=== PATIENT | female | born 1975 | race African-American/Black ===

== ENCOUNTER 2016-10-16 13:38 | Emergency (ER) | payer BC ==
[~2016-10-16 13:38] MED LIST: METR250T PO; ONDA4TAB10 SL
[2016-10-16] MEDS ORDERED: IV NORMAL SALINE 1000ML BAG 1,000 ML IV SCH (15:15)
[2016-10-16] MEDS ORDERED: PROCHLORPERAZINE 10 MG/2 ML VIAL. IV ONE (15:15)
[2016-10-16] MEDS ORDERED: DIPHENHYDRAMINE 50 MG/ML VIAL. IVP ONE (15:15)
[2016-10-16 15:51] LABS: BASO # 0.1 x10^3/uL (0.0-0.2); BASO % 1 % (0-3); EOS % 0 % (0-3); HEMOGLOBIN 14.3 g/dL (12.0-15.5); LYMPH # 1.2 x10^3/uL (1.0-4.8); LYMPH % 12 % (24-48); MEAN CORPUSCULAR HEMOGLOBIN 30 pg (25-35); MEAN CORPUSCULAR HGB CONC 33 g/dL (31-37); MEAN CORPUSCULAR VOLUME 90 fL (79-100); MONO % 4 % (0-9); NEUT % 83 % (31-73); PLATELET COUNT 101 x10^3/uL (140-400); RED BLOOD COUNT 4.79 x10^6/uL (3.50-5.40); RED CELL DISTRIBUTION WIDTH 14.2 % (11.5-14.5)
[2016-10-16 16:09] LABS: CALCIUM 8.9 mg/dL (8.5-10.1); CREATININE 0.8 mg/dL (0.6-1.0); GFR 96.1; PLT ESTIMATE DECREASED (ADEQUATE); POTASSIUM 3.8 mmol/L (3.5-5.1)
[2016-10-16 16:15] LABS: ALBUMIN 3.7 g/dL (3.4-5.0); TOTAL BILIRUBIN 0.4 mg/dL (0.2-1.0); TOTAL PROTEIN 7.3 g/dL (6.4-8.2)
[2016-10-16 16:24] VITALS: BP 152/97
[2016-10-16 16:29] LABS: BILIRUBIN,URINE NEGATIVE (NEG); GLUCOSE,URINE NEGATIVE (NEG); NITRITE,URINE NEGATIVE (NEG); PH,URINE 8.5; PROTEIN,URINE 30 mg/dL (NEG-TRACE)
--- NOTE | 2016-10-16 16:31 | PHYS DOC ---
Past Medical History Past Medical History: Hypertension, Migraines Past Surgical History: Tubal ligation Alcohol Use: Occasionally Drug Use: None Adult General Chief Complaint Chief Complaint: HEADACHE HPI HPI Patient is a 41 year old female who presents with headache. She reports a L side throbbing NEAL that started without provocation this morning ~0500. NEAL same as prior migraines. She has felt nauseous and vomited a few times today. Patient does report some mild epigastric discomfort due to the emesis. She has taken some ibuprofen today with insufficient relief. No numbness or weakness, no change in vision. No other acute complaints. Review of Systems Review of Systems Constitutional: Denies fever or chills Eyes: Denies change in visual acuity or eye pain HENT: Denies nasal congestion or sore throat Respiratory: Denies cough or shortness of breath Cardiovascular: Denies chest pain GI: Mild epigastric pain, nausea, vomiting. Denies bloody stools or diarrhea : Denies dysuria or hematuria Musculoskeletal: Denies back pain or joint pain Integument: Denies rash or skin lesions Neurologic: L side headache. Denies focal weakness or sensory changes Current Medications Current Medications Current Medications Medications (Trade) Dose Ordered Sig/Vignesh Start Time Stop Time Status Last Admin Dose Admin Diphenhydramine HCl (Benadryl) 25 mg 1X ONCE 10/16/16 15:15 10/16/16 15:16 DC 10/16/16 15:34 25 MG Prochlorperazine Edisylate (Compazine) 10 mg 1X ONCE 10/16/16 15:15 10/16/16 15:16 DC 10/16/16 15:36 10 MG Sodium Chloride (Iv Sodium Chloride 0.9% 1000ml Bag) 1,000 ml @ 1,000 mls/hr Q1H 10/16/16 15:15 10/16/16 16:14 DC 10/16/16 15:33 1,000 MLS/HR Allergies Allergies Allergies Coded Allergies Type Severity Reaction Last Updated Verified No Known Drug Allergies 01/22/15 No Physical Exam Physical Exam Constitutional: Well developed, well nourished, no acute distress, non-toxic appearance HENT: Normocephalic, atraumatic, bilateral external ears normal Eyes: PERRL, EOMI, conjunctiva normal, no discharge Neck: Normal range of motion, no stridor Cardiovascular: Heart rate normal, regular rhythm, no murmur Lungs & Thorax: Bilateral breath sounds clear to auscultation Abdomen: Bowel sounds normal, soft, non-distended, minimal epigastric TTP without guarding or rebound Skin: Warm, dry, no erythema, no rash Extremities: No obvious deformity, no edema Neurologic: Alert and oriented X 3, GCS 15, CN II-XII grossly intact, strength intact and symmetrical throughout, sensation to light touch intact throughout, no dystaxia noted Current Patient Data Vital Signs Vital Signs Date Time Temp Pulse Resp B/P Pulse Ox O2 Delivery O2 Flow Rate FiO2 10/16/16 14:24 97.7 74 20 172/109 98 Room Air 97.7 Lab Values Laboratory Tests Test 10/16/16 15:25 10/16/16 15:26 10/16/16 16:25 White Blood Count 10.0x10^3/uL (4.0-11.0) Red Blood Count 4.79x10^6/uL (3.50-5.40) Hemoglobin 14.3g/dL (12.0-15.5) Hematocrit 43.0% (36.0-47.0) Mean Corpuscular Volume 90fL (79-100) Mean Corpuscular Hemoglobin 30pg (25-35) Mean Corpuscular Hemoglobin Concent 33g/dL (31-37) Red Cell Distribution Width 14.2% (11.5-14.5) Platelet Count 101x10^3/uL (140-400) L Neutrophils (%) (Auto) 83% (31-73) H Lymphocytes (%) (Auto) 12% (24-48) L Monocytes (%) (Auto) 4% (0-9) Eosinophils (%) (Auto) 0% (0-3) Basophils (%) (Auto) 1% (0-3) Neutrophils # (Auto) 8.3x10^3uL (1.8-7.7) H Lymphocytes # (Auto) 1.2x10^3/uL (1.0-4.8) Monocytes # (Auto) 0.4x10^3/uL (0.0-1.1) Eosinophils # (Auto) 0.0x10^3/uL (0.0-0.7) Basophils # (Auto) 0.1x10^3/uL (0.0-0.2) Platelet Estimate Decreased (ADEQUATE) Large Platelets Few Giant Platelets Occ Sodium Level 144mmol/L (136-145) Potassium Level 3.8mmol/L (3.5-5.1) Chloride Level 106mmol/L (98-107) Carbon Dioxide Level 26mmol/L (21-32) Anion Gap 12 (6-14) Blood Urea Nitrogen 10mg/dL (7-20) Creatinine 0.8mg/dL (0.6-1.0) Estimated GFR (Cockcroft-Gault) 96.1 BUN/Creatinine Ratio 13 (6-20) Glucose Level 111mg/dL (70-99) H Calcium Level 8.9mg/dL (8.5-10.1) Total Bilirubin 0.4mg/dL (0.2-1.0) Aspartate Amino Transferase (AST) 12U/L (15-37) L Alanine Aminotransferase (ALT) 19U/L (14-59) Alkaline Phosphatase 58U/L (46-116) Total Protein 7.3g/dL (6.4-8.2) Albumin 3.7g/dL (3.4-5.0) Albumin/Globulin Ratio 1.0 (1.0-1.7) Lipase 70U/L (73-393) L POC Urine HCG, Qualitative Hcg negative (Negative) Urine Collection Type Unknown Urine Color Yellow Urine Clarity Cloudy Urine pH 8.5 Urine Specific [place] 1.025 Urine Protein 30mg/dL (NEG-TRACE) Urine Glucose (UA) Negativemg/dL (NEG) Urine Ketones (Stick) Negativemg/dL (NEG) Urine Blood Negative (NEG) Urine Nitrite Negative (NEG) Urine Bilirubin Negative (NEG) Urine Urobilinogen Dipstick 1.0mg/dL (0.2 mg/dL) Urine Leukocyte Esterase Small (NEG) Urine RBC 0/HPF (0-2) Urine WBC 5-10/HPF (0-4) Urine Squamous Epithelial Cells Mod/LPF Urine Bacteria Few/HPF (0-FEW) Urine Mucus Marked/LPF Laboratory Tests 10/16/16 15:25 Laboratory Tests 10/16/16 15:25 EKG EKG [] Radiology/Procedures Radiology/Procedures [] Course & Med Decision Making Course & Med Decision Making Pertinent Labs and Imaging studies reviewed. (See chart for details) Patient is 41 year old female who presents with NEAL. NEAL same as prior migraines, no concerning findings on physical exam. Will check basic labs given epigastric discomfort, although presumably this is due to vomiting. IV fluids, compazine, benadryl ordered for NEAL relief. Labs unremarkable. Discussed results with patient, whose NEAL has resolved at this time and is feeling much better. Will plan discharge home with rx for fioricet and phenergan, instructions for follow up with PCP and neurology, and strict return precautions. Dragon Disclaimer Dragon Disclaimer This electronic medical record was generated, in whole or in part, using a voice recognition dictation system. Departure Departure Impression: Primary Impression: Migraine Disposition: HOME, SELF-CARE Condition: IMPROVED Referrals: CHARLES CRUZ MD (PCP) ALANNA FARRIS MD Patient Instructions: Migraine Headache Additional Instructions: Thank you for allowing us to provide care today in the Emergency Department. Take the provided medication as directed. Use caution when taking this medication as it can make you drowsy. Schedule a follow up appointment with your primary care doctor and with a neurologist using the provided contact information. Return promptly to the Emergency Department if you develop any new or concerning symptoms. Scripts Promethazine Hcl 25 Mg [id number] Mg PO Q6H PRN NAUSEA/VOMITING #10 TAB Prov:SOPHIA PEREZ MD 10/16/16 Butalb/Acetaminophen/Caffeine (Fioricet 50-300-40 Mg Capsule)1 Each Capsule1 Each PO PRN Q4HRS PRN HEADACHE #15 CAP Prov:SOPHIA PEREZ MD 10/16/16 SOPHIA PEREZ MD Oct 16, 2016 16:31
[2016-10-16 16:35] LABS: BACTERIA,URINE FEW /HPF (0-FEW); RBC,URINE 0 /HPF (0-2); SQUAMOUS EPITHELIAL CELL,UR MOD /LPF
[2016-10-16] MEDS ORDERED: BUTA1CAP29 PO (16:46)
[2016-10-16] MEDS ORDERED: PROM25TA10 PO (16:46)
== END 2016-10-16 17:00 | disposition home or self-care (01) ==
LOC: ER 13:38
DX: G43.909 Migraine, unspecified, not intractable, without status migrainosus (principal); R10.13 Epigastric pain; I10 Essential (primary) hypertension; Z98.51 Tubal ligation status
CPT/HCPCS: 36415; 80053; 81001; 81025; 83690; 85007; 85027; 87086; 96361; 96374; 96375; 99284; J0780; J1200; J7030

== ENCOUNTER 2017-04-20 16:26 | Emergency (ER) | payer SELFPAY ==
[~2017-04-20 16:26] MED LIST changes: +BUTA1CAP29 PO; +PROM25TA10 PO
[2017-04-20] MEDS ORDERED: IV NORMAL SALINE 1000ML BAG 1,000 ML IV SCH (17:17)
[2017-04-20 17:27] LABS: BASO % 1 % (0-3); BILIRUBIN,URINE NEGATIVE (NEG); EOS % 1 % (0-3); GLUCOSE,URINE NEGATIVE (NEG); HEMATOCRIT 41.4 % (36.0-47.0); HEMOGLOBIN 13.9 g/dL (12.0-15.5); LYMPH # 1.4 x10^3/uL (1.0-4.8); LYMPH % 22 % (24-48); MEAN CORPUSCULAR HEMOGLOBIN 30 pg (25-35); MEAN CORPUSCULAR HGB CONC 34 g/dL (31-37); MEAN CORPUSCULAR VOLUME 89 fL (79-100); MONO % 7 % (0-9); NEUT % 70 % (31-73); NITRITE,URINE NEGATIVE (NEG); PH,URINE 7.5; PLATELET COUNT 110 x10^3/uL (140-400); PROTEIN,URINE NEGATIVE (NEG-TRACE); RED BLOOD COUNT 4.66 x10^6/uL (3.50-5.40); RED CELL DISTRIBUTION WIDTH 14.1 % (11.5-14.5); WHITE BLOOD COUNT 6.5 x10^3/uL (4.0-11.0)
[2017-04-20] MEDS ORDERED: ONDANSETRON PF 4 MG/2 ML VIAL. IV ONE (17:30)
[2017-04-20 17:32] LABS: BARBITURATES NEG (NEG); BENZODIAZEPINES NEG (NEG); CANNABINOIDS POS (NEG); COCAINE NEG (NEG); METHADONE NEG (NEG); OPIATES NEG (NEG); PHENCYCLIDINE NEG (NEG)
[2017-04-20 17:37] LABS: BACTERIA,URINE MOD /HPF (0-FEW); RBC,URINE 0 /HPF (0-2); SQUAMOUS EPITHELIAL CELL,UR MOD /LPF; TRICHOMONAS,URINE PRESENT
--- NOTE | 2017-04-20 17:42 | PHYS DOC ---
Past Medical History Past Medical History: Hypertension, Migraines Past Surgical History: Tubal ligation Alcohol Use: Occasionally Drug Use: None Adult General Chief Complaint Chief Complaint: NAUSEA/VOMITING/DIARRHA HPI HPI Patient is a 42 year old -French female who presents with vomiting and diarrhea. She states she's had 4 episodes of nonbloody vomiting today in 5- 6 episodes of nonbloody diarrhea. She states she has some crampy abdominal pain resolves between these episodes. She states she's been around her grands kids that have been sick with the same thing. Review of Systems Review of Systems Constitutional: Denies fever or chills Eyes: Denies change in visual acuity, redness, or eye pain HENT: Denies nasal congestion or sore throat Respiratory: Denies cough or shortness of breath Cardiovascular: No additional information not addressed in HPI GI: Denies abdominal pain, bloody stools, Positive for nausea, vomiting, and diarrhea : Denies dysuria or hematuria Musculoskeletal: Denies back pain or joint pain Integument: Denies rash or skin lesions Neurologic: Denies headache, focal weakness or sensory changes Endocrine: Denies polyuria or polydipsia Current Medications Current Medications Current Medications Medications (Trade) Dose Ordered Sig/Vigensh Start Time Stop Time Status Last Admin Dose Admin Ondansetron HCl (Zofran) 4 mg 1X ONCE 04/20/17 17:30 04/20/17 17:31 DC 04/20/17 18:05 4 MG Potassium Chloride (Klor-Con) 40 meq 1X ONCE 04/20/17 19:30 04/20/17 19:30 DC 04/20/17 19:08 40 MEQ Sodium Chloride 1,000 ml @ 1,000 mls/hr Q1H 04/20/17 17:17 04/20/17 18:16 DC 04/20/17 18:06 1,000 MLS/HR Allergies Allergies Allergies Coded Allergies Type Severity Reaction Last Updated Verified No Known Drug Allergies 01/22/15 No Physical Exam Physical Exam Constitutional: Well developed, well nourished, no acute distress, non-toxic appearance. HENT: Normocephalic, atraumatic, bilateral external ears normal, oropharynx moist, no oral exudates, nose normal. Eyes: PERRLA, EOMI, conjunctiva normal, no discharge. Neck: Normal range of motion, no tenderness, supple, no stridor. Cardiovascular:Heart rate regular rhythm, no murmur Lungs & Thorax: Bilateral breath sounds clear to auscultation Abdomen: Bowel sounds normal, soft, no tenderness, no masses, no pulsatile masses. Skin: Warm, dry, no erythema, no rash. Back: No tenderness, no CVA tenderness. Extremities: No tenderness, no cyanosis, no clubbing, ROM intact, no edema. Neurologic: Alert and oriented X 3, normal motor function, normal sensory function, no focal deficits noted. Psychologic: Affect normal, judgement normal, mood normal. Current Patient Data Vital Signs Vital Signs Date Time Temp Pulse Resp B/P (MAP) Pulse Ox O2 Delivery O2 Flow Rate FiO2 04/20/17 18:42 60 193/101 (131) 98 Room Air 04/20/17 16:49 98.2 16 98.2 Lab Values Laboratory Tests Test 04/20/17 16:50 04/20/17 17:52 White Blood Count 6.5 x10^3/uL (4.0-11.0) Red Blood Count 4.66 x10^6/uL (3.50-5.40) Hemoglobin 13.9 g/dL (12.0-15.5) Hematocrit 41.4 % (36.0-47.0) Mean Corpuscular Volume 89 fL (79-100) Mean Corpuscular Hemoglobin 30 pg (25-35) Mean Corpuscular Hemoglobin Concent 34 g/dL (31-37) Red Cell Distribution Width 14.1 % (11.5-14.5) Platelet Count 110 x10^3/uL (140-400) L Neutrophils (%) (Auto) 70 % (31-73) Lymphocytes (%) (Auto) 22 % (24-48) L Monocytes (%) (Auto) 7 % (0-9) Eosinophils (%) (Auto) 1 % (0-3) Basophils (%) (Auto) 1 % (0-3) Neutrophils # (Auto) 4.5 x10^3uL (1.8-7.7) Lymphocytes # (Auto) 1.4 x10^3/uL (1.0-4.8) Monocytes # (Auto) 0.4 x10^3/uL (0.0-1.1) Eosinophils # (Auto) 0.0 x10^3/uL (0.0-0.7) Basophils # (Auto) 0.0 x10^3/uL (0.0-0.2) Platelet Estimate Decreased (ADEQUATE) Prothrombin Time 13.0 SEC (11.7-14.0) Prothrombin Time INR 1.0 (0.8-1.1) PTT 28 SEC (24-38) Urine Collection Type Unknown Urine Color Yellow Urine Clarity Cloudy Urine pH 7.5 Urine Specific [place] 1.020 Urine Protein Negative mg/dL (NEG-TRACE) Urine Glucose (UA) Negative mg/dL (NEG) Urine Ketones (Stick) 15 mg/dL (NEG) Urine Blood Negative (NEG) Urine Nitrite Negative (NEG) Urine Bilirubin Negative (NEG) Urine Urobilinogen Dipstick 1.0 mg/dL (0.2 mg/dL) Urine Leukocyte Esterase Moderate (NEG) Urine RBC 0 /HPF (0-2) Urine WBC 1-4 /HPF (0-4) Urine Squamous Epithelial Cells Mod /LPF Urine Bacteria Mod /HPF (0-FEW) Urine Mucus Slight /LPF Urine Trichomonas Present Urine Opiates Screen Neg (NEG) Urine Methadone Screen Neg (NEG) Urine Barbiturates Neg (NEG) Urine Phencyclidine Screen Neg (NEG) Urine Amphetamine/Methamphetamine Neg (NEG) Urine Benzodiazepines Screen Neg (NEG) Urine Cocaine Screen Neg (NEG) Urine Cannabinoids Screen Pos (NEG) Urine Ethyl Alcohol Neg (NEG) Sodium Level 140 mmol/L (136-145) Potassium Level 3.4 mmol/L (3.5-5.1) L Chloride Level 104 mmol/L (98-107) Carbon Dioxide Level 27 mmol/L (21-32) Anion Gap 9 (6-14) Blood Urea Nitrogen 11 mg/dL (7-20) Creatinine 0.7 mg/dL (0.6-1.0) Estimated GFR (Cockcroft-Gault) 111.6 Glucose Level 103 mg/dL (70-99) H Calcium Level 8.8 mg/dL (8.5-10.1) Total Bilirubin 0.3 mg/dL (0.2-1.0) Direct Bilirubin 0.1 mg/dL (0.0-0.2) Aspartate Amino Transferase (AST) 14 U/L (15-37) L Alanine Aminotransferase (ALT) 19 U/L (14-59) Alkaline Phosphatase 58 U/L (46-116) Total Protein 7.3 g/dL (6.4-8.2) Albumin 3.6 g/dL (3.4-5.0) Lipase 87 U/L (73-393) Laboratory Tests 04/20/17 16:50 Laboratory Tests 04/20/17 17:52 EKG EKG [] Radiology/Procedures Radiology/Procedures [] Impressions: Nausea vomiting diarrhea Hypokalemia Course & Med Decision Making Course & Med Decision Making Pertinent Labs and Imaging studies reviewed. (See chart for details) Labs, do not show any acute abnormalities. Patient feels better after Zofran and IV hydration. Return precautions given. Patient's being discharged in stable condition this time. Dragon Disclaimer Dragon Disclaimer This electronic medical record was generated, in whole or in part, using a voice recognition dictation system. Departure Departure Impression: Primary Impression: Nausea and vomiting Disposition: HOME, SELF-CARE Condition: STABLE Referrals: CHARLES CRUZ MD (PCP) Patient Instructions: Nausea and Vomiting, [id number] Additional Instructions: You were seen for nausea and vomiting. You received IV fluids and your labs did not show any acute abnormalities. Your potassium level was slightly low and this was replaced with one pill. Your being discharged home. You can take Zofran which is an oral dissolvable tablet for nausea and vomiting. Please push fluids for the next 2-3 days. You should follow up with primary care physician within the next week. Return back to ER if you have uncontrolled nausea vomiting , abdominal pain or other concerns. Scripts Ondansetron (ZOFRAN ODT) 4 Mg Tab.rapdis 1 TAB SL Q8HRS, #10 TAB Prov: JOSE GREWAL MD 04/20/17 Problem Qualifiers Primary Impression: Nausea and vomiting Vomiting type: unspecified Vomiting Intractability: non-intractable Qualified Codes: R11.2 - Nausea with vomiting, unspecified JOSE GREWAL MD Apr 20, 2017 17:42
[2017-04-20 17:47] LABS: PLT ESTIMATE DECREASED (ADEQUATE)
[2017-04-20 18:12] LABS: CALCIUM 8.8 mg/dL (8.5-10.1); CREATININE 0.7 mg/dL (0.6-1.0); GFR 111.6; POTASSIUM 3.4 mmol/L (3.5-5.1)
[2017-04-20 18:18] LABS: ALBUMIN 3.6 g/dL (3.4-5.0); DIRECT BILIRUBIN 0.1 mg/dL (0.0-0.2); TOTAL BILIRUBIN 0.3 mg/dL (0.2-1.0); TOTAL PROTEIN 7.3 g/dL (6.4-8.2)
[2017-04-20 18:42] VITALS: BP 193/101
[2017-04-20] MEDS ORDERED: ONDA4TAB10 SL (19:06)
[2017-04-20] MEDS ORDERED: POTASSIUM CHLORIDE 20 MEQ TABLET.ER. PO ONE (19:30)
== END 2017-04-20 19:15 | disposition home or self-care (01) ==
LOC: ER 16:26
DX: R11.2 Nausea with vomiting, unspecified (principal); R19.7 Diarrhea, unspecified; R10.9 Unspecified abdominal pain; I10 Essential (primary) hypertension; G43.909 Migraine, unspecified, not intractable, without status migrainosus
CPT/HCPCS: 36415; 80048; 80076; 80307; 81001; 83690; 85025; 85610; 85730; 96361; 96374; 99284; J2405; J7030; G0479

== ENCOUNTER 2017-07-28 15:59 | Emergency (ER) | payer SELFPAY ==
[2017-07-28 19:20] LABS: URINE HCG POC HCG NEGATIVE (Negative)
[2017-07-28 19:25] LABS: ADD MAN DIFF? NO
[2017-07-28 19:31] LABS: BASO % 1 % (0-3); EOS % 0 % (0-3); HEMATOCRIT 43.6 % (36.0-47.0); HEMOGLOBIN 14.1 g/dL (12.0-15.5); LYMPH # 0.7 x10^3/uL (1.0-4.8); LYMPH % 14 % (24-48); MEAN CORPUSCULAR HEMOGLOBIN 29 pg (25-35); MEAN CORPUSCULAR HGB CONC 32 g/dL (31-37); MEAN CORPUSCULAR VOLUME 90 fL (79-100); MONO # 0.5 x10^3/uL (0.0-1.1); MONO % 10 % (0-9); NEUT # 3.7 x10^3uL (1.8-7.7); NEUT % 75 % (31-73); PLATELET COUNT 127 x10^3/uL (140-400); RED BLOOD COUNT 4.87 x10^6/uL (3.50-5.40); RED CELL DISTRIBUTION WIDTH 14.2 % (11.5-14.5); WHITE BLOOD COUNT 4.9 x10^3/uL (4.0-11.0)
[2017-07-28 19:32] LABS: BILIRUBIN,URINE NEGATIVE (NEG); CLARITY,URINE CLEAR; COLOR,URINE YELLOW; GLUCOSE,URINE NEGATIVE (NEG); NITRITE,URINE NEGATIVE (NEG); PH,URINE 7.5; PROTEIN,URINE 30 mg/dL (NEG-TRACE)
[2017-07-28 19:41] LABS: BACTERIA,URINE 0 /HPF (0-FEW); SQUAMOUS EPITHELIAL CELL,UR MOD /LPF
[2017-07-28 19:42] LABS: TRICHOMONAS,URINE PRESENT
[2017-07-28] MEDS: IOHEXOL 300 MG/ML 100ML VIAL. IV (19:45)
[2017-07-28] MEDS: ONDANSETRON PF 4 MG/2 ML VIAL. IV (19:51)
[2017-07-28] MEDS: MORPHINE SULFATE 4 MG/ML DISP.SYRIN. IV (19:51)
[2017-07-28 19:57] LABS: ANION GAP 12 (6-14); BLOOD UREA NITROGEN 9 mg/dL (7-20); BUN/CREATININE RATIO 11 (6-20); CALCIUM 8.6 mg/dL (8.5-10.1); CARBON DIOXIDE 23 mmol/L (21-32); CHLORIDE 102 mmol/L (98-107); CREATININE 0.8 mg/dL (0.6-1.0); GFR 95.6; GLUCOSE 105 mg/dL (70-99); POTASSIUM 3.5 mmol/L (3.5-5.1); SODIUM 137 mmol/L (136-145)
[2017-07-28] MEDS ORDERED: CONTRAST GIVEN MC (20:00)
[2017-07-28 20:03] LABS: ALBUMIN 3.9 g/dL (3.4-5.0); ALK PHOS 59 U/L (46-116); ALT (SGPT) 17 U/L (14-59); AST (SGOT) 13 U/L (15-37); LIPASE 57 U/L (73-393); TOTAL BILIRUBIN 0.2 mg/dL (0.2-1.0); TOTAL PROTEIN 7.7 g/dL (6.4-8.2)
[2017-07-28 20:13] LABS: PLT ESTIMATE ADEQUATE (ADEQUATE)
== END 2017-07-28 21:38 | disposition home or self-care (01) ==
LOC: ER 15:59
DX: R10.84 Generalized abdominal pain (principal); A59.9 Trichomoniasis, unspecified; I10 Essential (primary) hypertension; G43.909 Migraine, unspecified, not intractable, without status migrainosus; Z98.51 Tubal ligation status
CPT/HCPCS: 36415; 74177; 80053; 81001; 81025; 83690; 85025; 96374; 96375; 99285-25; J2270; J2405; Q9967

== ENCOUNTER 2020-09-14 14:20 | Emergency (ER) | payer SELFPAY ==
[~2020-09-14] VITALS: Ht 172.7 cm; Wt 95.0 kg
[~2020-09-14 14:20] MED LIST changes: +AMLO-187 PO; +BUTA1TAB23 PO; +CIPR500T94 PO; +HYDR-2867 PO; +HYDR-2868 PO; +ISOS10TA4 PO; +METR500T PO
[2020-09-14] MEDS ORDERED: NITROGLYCERIN SUBLINGUAL 0.4 MG BOTTLE OF 25. SL PRN (15:00)
--- NOTE | 2020-09-14 15:15 | EKG ---
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
[2020-09-14] MEDS: ASPIRIN 325 MG TABLET PO ONE (15:19)
[2020-09-14] MEDS: MORPHINE SULFATE 4 MG/ML VIAL. IV/SQ PRN (15:20)
[2020-09-14 15:22] VITALS: BP 205/109
[2020-09-14 15:22] LABS: BILIRUBIN,URINE NEGATIVE (NEG); CLARITY,URINE CLOUDY; COLOR,URINE YELLOW; NITRITE,URINE NEGATIVE (NEG); PROTEIN,URINE 30 mg/dL (NEG-TRACE)
[2020-09-14] MEDS: LABETALOL 20 MG/4 ML DISP.SYRIN. IVP ONE (15:22)
--- NOTE | 2020-09-14 15:26 | RAD ---
EXAM: Chest, single view. HISTORY: Chest pain. COMPARISON: None. FINDINGS: A frontal view of the chest obtained. There is no infiltrate, pleural effusion or pneumotho rax. There is a mildly enlarged cardiac silhouette. IMPRESSION: No acute pulmonary finding. Mildly enlarged cardiac silhouette. Electronically signed by: Ramila Grigsby MD (09/14/2020 3:24 PM) [id number]
[2020-09-14 15:33] LABS: BACTERIA,URINE MODERATE /HPF (0-FEW)
[2020-09-14 15:33] LABS: BASO # 0.1 x10^3/uL (0.0-0.2); BASO % 1 % (0-3); EOS % 1 % (0-3); HEMATOCRIT 39.4 % (36.0-47.0); HEMOGLOBIN 12.9 g/dL (12.0-15.5); LYMPH # 2.4 x10^3/uL (1.0-4.8); LYMPH % 31 % (24-48); MEAN CORPUSCULAR HEMOGLOBIN 30 pg (25-35); MEAN CORPUSCULAR HGB CONC 33 g/dL (31-37); MEAN CORPUSCULAR VOLUME 92 fL (79-100); MONO # 0.5 x10^3/uL (0.0-1.1); MONO % 7 % (0-9); NEUT # 4.7 x10^3/uL (1.8-7.7); NEUT % 61 % (31-73); PLATELET COUNT 73 x10^3/uL (140-400); RED CELL DISTRIBUTION WIDTH 14.9 % (11.5-14.5); WHITE BLOOD COUNT 7.7 x10^3/uL (4.0-11.0)
[2020-09-14 15:34] LABS: TRICHOMONAS,URINE PRESENT
[2020-09-14 15:36] LABS: BARBITURATES NEG (NEG); BENZODIAZEPINES NEG (NEG); CANNABINOIDS POS (NEG); COCAINE NEG (NEG); METHADONE NEG (NEG); OPIATES NEG (NEG); PHENCYCLIDINE NEG (NEG)
[2020-09-14 15:37] LABS: AMPHETAMINE/METHAMPHETAMINE NEG (NEG)
[2020-09-14 15:48] LABS: CALCIUM 8.3 mg/dL (8.5-10.1); CREATININE 0.9 mg/dL (0.6-1.0); GFR 82.3; POTASSIUM 3.5 mmol/L (3.5-5.1)
[2020-09-14 15:55] LABS: ALBUMIN 3.4 g/dL (3.4-5.0); ALBUMIN/GLOBULIN RATIO 0.9 (1.0-1.7); TOTAL BILIRUBIN 0.3 mg/dL (0.2-1.0)
[2020-09-14 16:01] LABS: PLT ESTIMATE DECREASED (ADEQUATE)
[2020-09-14] MEDS: DOXYCYCLINE HYCLATE 100 MG TABLET PO ONE (17:12)
[2020-09-14] MEDS: metroNIDAZOLE 500 MG TABLET PO ONE (17:12)
[2020-09-14] MEDS: cefTRIAXone IV Push 1 GM VIAL. IVP ONE (17:13)
[2020-09-14] MEDS ORDERED: AMLO-187 PO (17:38)
[2020-09-14] MEDS ORDERED: BUTA1TAB23 PO (17:38)
[2020-09-14] MEDS ORDERED: DOXY100T PO (17:38)
[2020-09-14] MEDS ORDERED: HYDR-2868 PO (17:38)
[2020-09-14] MEDS ORDERED: PROM12.58 PO (17:38)
[2020-09-14] MEDS ORDERED: BUTA-177 PO (17:40)
--- NOTE | 2020-09-14 17:41 | PHYS DOC ---
Past Medical History Past Medical History: Hypertension, Migraines Past Surgical History: Tubal ligation Smoking Status: Never Smoker Alcohol Use: Occasionally Drug Use: Marijuana General Adult EDM: Chief Complaint: HEADACHE HPI: HPI: Patient is a 45 year old female with a history of migraine headaches, hypertension, who presents to the ED today complaining of a migraine headache rated at 8 out of 10 described as throbbing and frontal, symptoms began yesterday. Also complaining of of nausea and vomiting. Denies any chest pain or shortness of breath. Denies any fever. Denies any cough or congestion. Denies any abdominal pain. States this is a typical presentation for her migraine headaches. She also states she has high blood pressure and has not taken her medicines for months. Denies this being the worst headache in her life. Review of Systems: Review of Systems: Constitutional: Denies fever or chills. [] Eyes: Denies change in visual acuity. [] HENT: Denies nasal congestion or sore throat. [] Respiratory: Denies cough or shortness of breath. [] Cardiovascular: Denies chest pain or edema. [] GI: Reports nausea and vomiting. Denies abdominal pain,bloody stools or diarrhea. [] : Denies dysuria. [] Musculoskeletal: Denies back pain or joint pain. [] Integument: Denies rash. [] Neurologic: Reports migraine headache, denies focal weakness or sensory changes. [] Psychiatric: Denies depression or anxiety. [] Heart Score: C/O Chest Pain: N/A Risk Factors: Risk Factors: DM, Current or recent (<one month) smoker, HTN, HLP, family his tory of CAD, obesity. Risk Scores: Score 0 - 3: 2.5% MACE over next 6 weeks - Discharge Home Score 4 - 6: 20.3% MACE over next 6 weeks - Admit for Clinical Observation Score 7 - 10: 72.7% MACE over next 6 weeks - Early Invasive Strategies Current Medications: Current Medications Medications (Trade) Dose Ordered Sig/Vignesh Start Time Stop Time Status Last Admin Dose Admin Aspirin ([place] Aspirin) 325 mg 1X ONCE 09/14/20 15:00 09/14/20 15:03 DC 09/14/20 15:19 325 MG Ceftriaxone Sodium (Rocephin) 1 gm 1X ONCE 09/14/20 17:00 09/14/20 17:01 DC 09/14/20 17:13 1 GM Doxycycline Hyclate (Vibra-Tab) 100 mg 1X ONCE 09/14/20 17:00 09/14/20 17:01 DC 09/14/20 17:12 100 MG Labetalol HCl (Normodyne Iv Push) 10 mg 1X ONCE 09/14/20 15:00 09/14/20 15:03 DC 09/14/20 15:22 10 MG Metronidazole (Flagyl) 2,000 mg 1X ONCE 09/14/20 17:15 09/14/20 17:16 DC 09/14/20 17:12 2,000 MG Morphine Sulfate (Morphine Sulfate) 4 mg PRN Q15MIN PRN 09/14/20 15:00 09/15/20 14:59 09/14/20 15:20 4 MG Nitroglycerin (Nitrostat) 0.4 mg PRN Q5MIN PRN 09/14/20 15:00 09/15/20 14:59 Allergies: Allergies: Allergies Coded Allergies Type Severity Reaction Last Updated Verified No Known Drug Allergies 01/22/15 No Physical Exam: PE: Constitutional: Well developed, well nourished, no acute distress, non-toxic appearance. [] HENT: Normocephalic, atraumatic, bilateral external ears normal, oropharynx moist, no oral exudates, nose normal. [] Eyes: PERRLA, EOMI, conjunctiva normal, no discharge. [] Neck: Normal range of motion, no tenderness, supple, no stridor. [] Cardiovascular:Heart rate regular rhythm, no murmur [] Lungs & Thorax: Bilateral breath sounds clear to auscultation [] Abdomen: Bowel sounds normal, soft, no tenderness, no masses, no pulsatile masses. [] Skin: Warm, dry, no erythema, no rash. [] Back: No tenderness, no CVA tenderness. [] Extremities: No tenderness, no cyanosis, no clubbing, ROM intact, no edema. [] Neurologic: Alert and oriented X 3, normal motor function, normal sensory function, no focal deficits noted. Cranial nerves II through XII intact Psychologic: Affect normal, judgement normal, mood normal. [] Current Patient Data: Labs: Laboratory Tests Test 09/14/20 14:30 09/14/20 15:12 Urine Collection Type Unknown Urine Color Yellow Urine Clarity Cloudy Urine pH 6.0 (<5.0-8.0) Urine Specific [place] >=1.030 (1.000-1.030) Urine Protein 30 mg/dL (NEG-TRACE) Urine Glucose (UA) Negative mg/dL (NEG) Urine Ketones (Stick) Negative mg/dL (NEG) Urine Blood Negative (NEG) Urine Nitrite Negative (NEG) Urine Bilirubin Negative (NEG) Urine Urobilinogen Dipstick 1.0 mg/dL (0.2 mg/dL) Urine Leukocyte Esterase Moderate (NEG) Urine RBC 1-2 /HPF (0-2) Urine WBC 11-20 /HPF (0-4) Urine Squamous Epithelial Cells Many /LPF Urine Bacteria Moderate /HPF (0-FEW) Urine Mucus Marked /LPF Urine Trichomonas Present Urine Opiates Screen Neg (NEG) Urine Methadone Screen Neg (NEG) Urine Barbiturates Neg (NEG) Urine Phencyclidine Screen Neg (NEG) Urine Amphetamine/Methamphetamine Neg (NEG) Urine Benzodiazepines Screen Neg (NEG) Urine Cocaine Screen Neg (NEG) Urine Cannabinoids Screen Pos (NEG) Urine Ethyl Alcohol Neg (NEG) White Blood Count 7.7 x10^3/uL (4.0-11.0) Red Blood Count 4.30 x10^6/uL (3.50-5.40) Hemoglobin 12.9 g/dL (12.0-15.5) Hematocrit 39.4 % (36.0-47.0) Mean Corpuscular Volume 92 fL (79-100) Mean Corpuscular Hemoglobin 30 pg (25-35) Mean Corpuscular Hemoglobin Concent 33 g/dL (31-37) Red Cell Distribution Width 14.9 % (11.5-14.5) H Platelet Count 73 x10^3/uL (140-400) L Neutrophils (%) (Auto) 61 % (31-73) Lymphocytes (%) (Auto) 31 % (24-48) Monocytes (%) (Auto) 7 % (0-9) Eosinophils (%) (Auto) 1 % (0-3) Basophils (%) (Auto) 1 % (0-3) Neutrophils # (Auto) 4.7 x10^3/uL (1.8-7.7) Lymphocytes # (Auto) 2.4 x10^3/uL (1.0-4.8) Monocytes # (Auto) 0.5 x10^3/uL (0.0-1.1) Eosinophils # (Auto) 0.0 x10^3/uL (0.0-0.7) Basophils # (Auto) 0.1 x10^3/uL (0.0-0.2) Platelet Estimate Decreased (ADEQUATE) Large Platelets Mod Giant Platelets Occ Sodium Level 139 mmol/L (136-145) Potassium Level 3.5 mmol/L (3.5-5.1) Chloride Level 104 mmol/L (98-107) Carbon Dioxide Level 26 mmol/L (21-32) Anion Gap 9 (6-14) Blood Urea Nitrogen 12 mg/dL (7-20) Creatinine 0.9 mg/dL (0.6-1.0) Estimated GFR (Cockcroft-Gault) 82.3 BUN/Creatinine Ratio 13 (6-20) Glucose Level 90 mg/dL (70-99) Calcium Level 8.3 mg/dL (8.5-10.1) L Magnesium Level 2.0 mg/dL (1.8-2.4) Total Bilirubin 0.3 mg/dL (0.2-1.0) Aspartate Amino Transferase (AST) 16 U/L (15-37) Alanine Aminotransferase (ALT) 20 U/L (14-59) Alkaline Phosphatase 50 U/L (46-116) Troponin I Quantitative < 0.017 ng/mL (0.000-0.055) LQ-Mgc-B-Type Natriuretic Peptide 150 pg/mL (0-124) H Total Protein 7.0 g/dL (6.4-8.2) Albumin 3.4 g/dL (3.4-5.0) Albumin/Globulin Ratio 0.9 (1.0-1.7) L Thyroid Stimulating Hormone (TSH) 0.501 uIU/mL (0.358-3.74) Laboratory Tests 09/14/20 15:12 Laboratory Tests 09/14/20 15:12 Vital Signs: Vital Signs Date Time Temp Pulse Resp B/P (MAP) Pulse Ox O2 Delivery O2 Flow Rate FiO2 09/14/20 15:22 66 205/109 09/14/20 15:20 18 99 Room Air 09/14/20 14:31 97.9 97.9 EKG: EK Interpreted by Dr. Garcia sinus rhythm HR 50 no STEMI Radiology/Procedures: Radiology/Procedures: []PROCEDURE: PORTABLE CHEST 1V EXAM: Chest, single view. HISTORY: Chest pain. COMPARISON: None. FINDINGS: A frontal view of the chest obtained. There is no infiltrate, pleural effusion or pneumothorax. There is a mildly enlarged cardiac silhouette. IMPRESSION: No acute pulmonary finding. Mildly enlarged cardiac silhouette. Electronically signed by: Ramila Perdue MD (09/14/2020 3:24 PM) [id number] DICTATED and SIGNED BY: RAMILA PERDUE MD DATE: 09/14/20 [id number] 0 Course & Med Decision Making: Course & Med Decision Making Pertinent Labs and Imaging studies reviewed. (See chart for details) This is a 45-year-old female patient with history of hypertension and migraine headaches presenting today complaining of a migraine headache with nausea vomiting since yesterday. Patient states this is her typical presentation of migraine headaches. Denies any chest pain or shortness of breath. Denies this being the worst headache in her life. Her blood pressure was up at 210/130 with a heart rate of 64 upon arrival to the ED. She reports history of uncontrolled hypertension because she has no PCP hence has not been taking her medicines. Patient was given blood pressure medicine, BP 180/109 after a few minutes EKG is negative, troponin is normal, CBC CMP with nothing acute. UA noted for trichomonas and UTI. Patient was treated for STDs in the ED and discharged to home. Follow-up with PCP in 1 week Sara Disclaimer: Sara Disclaimer: This electronic medical record was generated, in whole or in part, using a voice recognition dictation system. Departure Departure Impression: Primary Impression: Hypertension Qualified Codes: I10 - Essential (primary) hypertension Additional Impressions: Nausea and vomiting Qualified Codes: R11.2 - Nausea with vomiting, unspecified Migraine Qualified Codes: G43.909 - Migraine, unspecified, not intractable, without status migrainosus Trichomoniasis Disposition: 01 DC HOME SELF CARE/HOMELESS Condition: STABLE Referrals: CHARLES CRUZ MD (PCP) follow up next week Patient Instructions: Migraine Headache, Trichomoniasis Additional Instructions: You were evaluated in the emergency room, you were noted to have trichomonas. Please ensure you take the prescribed antibiotics until completed. You also have urinary tract infection. Follow-up with your doctor next week contact all your sex partners and let them know you are treated for trichomonas and ask them to seek treatment Scripts Butalbital/Aspirin/Caffeine (Ixtssb-Hctdxte-Wgxjq 50-325-40) 1 Each Tablet 1 TAB PO Q6HRS PRN for MIGRAINE HEADACHE MDD 1 Tablet(s), #30 TAB 0 Refills Prov: JACK OLIVEIRA APRN 09/14/20 Promethazine Hcl (PROMETHAZINE HCL) 12.5 Mg Tablet 1 TAB PO Q6-8HRS for motion sickness, #20 TAB 0 Refills Prov: JACK OLIVEIRA APRN 09/14/20 Doxycycline Hyclate (DOXYCYCLINE HYCLATE) 100 Mg Tablet 1 TAB PO BID, #14 TAB Prov: JAKC OLIVEIRA APRN 09/14/20 Hydralazine Hcl (HYDRALAZINE HCL) 25 Mg Tablet 1 TAB PO TID, #90 TAB 3 Refills Prov: JACK OLIVEIRA APRN 09/14/20 Amlodipine Besylate (AMLODIPINE BESYLATE) 10 Mg Tablet 10 MG PO DAILY, #90 TAB Prov: JACK OLIVEIRA APRN 09/14/20 JACK OLIVEIRA APRN Sep 14, 2020 17:41
== END 2020-09-14 17:56 | disposition home or self-care (01) ==
LOC: ER 14:20
DX: I10 Essential (primary) hypertension (principal); R11.2 Nausea with vomiting, unspecified; G43.909 Migraine, unspecified, not intractable, without status migrainosus; F12.90 Cannabis use, unspecified, uncomplicated; Z98.51 Tubal ligation status
CPT/HCPCS: 36415; 71045; 80053; 80307; 81001; 83735; 83880; 84443; 84484; 85025; 87086; 93005; 96374; 96375; 99285; J0696; J2270; J3490

== ENCOUNTER 2020-10-08 11:20 | Emergency (ER) | payer SELFPAY ==
[~2020-10-08] VITALS: Ht 172.7 cm; Wt 95.5 kg
[~2020-10-08 11:20] MED LIST changes: +BUTA-177 PO; +DOXY100T PO; +PROM12.58 PO
[2020-10-08] MEDS ORDERED: hydrALAZINE 20 MG/ML VIAL. IVP ONE (11:45)
[2020-10-08 12:01] LABS: BASO # 0.1 x10^3/uL (0.0-0.2); BASO % 1 % (0-3); EOS # 0.1 x10^3/uL (0.0-0.7); EOS % 1 % (0-3); HEMATOCRIT 39.7 % (36.0-47.0); LYMPH # 2.8 x10^3/uL (1.0-4.8); LYMPH % 39 % (24-48); MEAN CORPUSCULAR HEMOGLOBIN 30 pg (25-35); MEAN CORPUSCULAR HGB CONC 33 g/dL (31-37); MEAN CORPUSCULAR VOLUME 92 fL (79-100); MONO # 0.5 x10^3/uL (0.0-1.1); MONO % 7 % (0-9); NEUT # 3.7 x10^3/uL (1.8-7.7); NEUT % 52 % (31-73); PLATELET COUNT 109 x10^3/uL (140-400); RED BLOOD COUNT 4.31 x10^6/uL (3.50-5.40); RED CELL DISTRIBUTION WIDTH 14.7 % (11.5-14.5); WHITE BLOOD COUNT 7.1 x10^3/uL (4.0-11.0)
[2020-10-08 12:05] LABS: CREATININE 0.8 mg/dL (0.6-1.0); GFR 94.3; POTASSIUM 3.8 mmol/L (3.5-5.1)
--- NOTE | 2020-10-08 12:08 | PHYS DOC ---
Past Medical History Past Medical History: Hypertension, Migraines Past Surgical History: Tubal ligation Smoking Status: Never Smoker Alcohol Use: Occasionally Drug Use: Marijuana General Adult EDM: Chief Complaint: CHEST PAIN HPI: HPI: Patient is a 45 year old female who presented to ER due to substernal chest pain that been going on for 4 days. Patient described the pain as sharp and stabbing in nature, her work with palpation or taking a deep breaths. Patient denies any cough or fever. Patient has history hypertension, patient had not taken her medication .patient denies any abdominal pain, no nausea vomiting. Patient denies any history of coronary disease, had no history of diabetic. Patient denies history PE. Review of Systems: Review of Systems: Constitutional: Denies fever or chills. [] Eyes: Denies change in visual acuity. [] HENT: Denies nasal congestion or sore throat. [] Respiratory: Denies cough or shortness of breath. [] Cardiovascular: Positive for chest pain, no edema GI: Denies abdominal pain, nausea, vomiting, bloody stools or diarrhea. [] : Denies dysuria. [] Musculoskeletal: Denies back pain or joint pain. [] Integument: Denies rash. [] Neurologic: Denies headache, focal weakness or sensory changes. [] Endocrine: Denies polyuria or polydipsia. [] Lymphatic: Denies swollen glands. [] Psychiatric: Denies depression or anxiety. [] Heart Score: C/O Chest Pain: Yes HEART Score for Chest Pain: HEART Score for Chest Pain Response (Comments) Value History Slighlty/Non-Suspicious 0 ECG Normal 0 Age < 45 0 Risk Factors 1 or 2 Risk Factors 1 Troponin < Normal Limit 0 Total 1 Risk Factors: Risk Factors: DM, Current or recent (<one month) smoker, HTN, HLP, family history of CAD, obesity. Risk Scores: Score 0 - 3: 2.5% MACE over next 6 weeks - Discharge Home Score 4 - 6: 20.3% MACE over next 6 weeks - Admit for Clinical Observation Score 7 - 10: 72.7% MACE over next 6 weeks - Early Invasive Strategies Current Medications: Current Medications Medications (Trade) Dose Ordered Sig/Vignesh Start Time Stop Time Status Last Admin Dose Admin Hydralazine HCl (Apresoline Inj) 20 mg 1X ONCE 10/08/20 11:45 10/08/20 11:46 DC Allergies: Allergies: Allergies Coded Allergies Type Severity Reaction Last Updated Verified No Known Drug Allergies 01/22/15 No Physical Exam: PE: Constitutional: Well developed, well nourished, no acute distress, non-toxic appearance. [] HENT: Normocephalic, atraumatic, bilateral external ears normal, oropharynx moist, no oral exudates, nose normal. [] Eyes: PERRLA, EOMI, conjunctiva normal, no discharge. [] Neck: Normal range of motion, no tenderness, supple, no stridor. [] Cardiovascular:Heart rate regular rhythm, no murmur , chest pain is reproducible to palpation Lungs & Thorax: Bilateral breath sounds clear to auscultation [] Abdomen: Bowel sounds normal, soft, no tenderness, no masses, no pulsatile masses. [] Skin: Warm, dry, no erythema, no rash. [] Back: No tenderness, no CVA tenderness. [] Extremities: No tenderness, no cyanosis, no clubbing, ROM intact, no edema. [] Neurologic: Alert and oriented X 3, normal motor function, normal sensory function, no focal deficits noted. [] Psychologic: Affect normal, judgement normal, mood normal. [] Current Patient Data: Labs: Laboratory Tests Test 10/08/20 11:35 Sodium Level 140 mmol/L (136-145) Potassium Level 3.8 mmol/L (3.5-5.1) Chloride Level 104 mmol/L (98-107) Carbon Dioxide Level 27 mmol/L (21-32) Anion Gap 9 (6-14) Blood Urea Nitrogen 8 mg/dL (7-20) Creatinine 0.8 mg/dL (0.6-1.0) Estimated GFR (Cockcroft-Gault) 94.3 BUN/Creatinine Ratio 10 (6-20) Glucose Level 92 mg/dL (70-99) Calcium Level 9.0 mg/dL (8.5-10.1) Magnesium Level Pending Total Bilirubin Pending Aspartate Amino Transferase (AST) Pending Alanine Aminotransferase (ALT) Pending Alkaline Phosphatase Pending Total Protein Pending Albumin Pending Albumin/Globulin Ratio Pending Lipase Pending Laboratory Tests 10/08/20 11:35 EKG: EKG: EKG was done at 1130, heart rate of 59 bpm, normal axis, sinus rhythm, no ST segment elevation. Radiology/Procedures: Radiology/Procedures: [][facility] [address] [place] [address] IMAGING REPORT Signed PATIENT: FRANCISCO MOREL ACCOUNT: [id number] : 1975 LOCATION: ER AGE: 45 SEX: F EXAM STATUS: REG ER ORD. PHYSICIAN: RAVI KAPLAN DO REASON: chest pain, hypertensive, dissection study PROCEDURE: CT ANGIOGRAPHY CHEST PQRS Compliance Statement: One or more of the following individualized dose reduction techniques were utilized for this examination: 1. Automated exposure control 2. Adjustment of the mA and/or kV according to patient size 3. Use of iterative reconstruction technique CTA CHEST Clinical Indication: Reason: chest pain, hypertensive, dissection study Comparison: None. Technique: Helical CT imaging of the chest is performed before and after 90 cc Omnipaque [address] angiogram protocol. 3-D MIP reconstructions of the aorta. Findings: No acute intramural hematoma is identified on the precontrast images. There is no thoracic aortic dissection. The aortic arch branches are patent. The great vessels are normal caliber. There is no central pulmonary embolus. The visualized thyroid is prominent. No nodule is seen. There is no adenopathy in the chest. The cardiac size is normal, no pericardial effusion. There is no pleural abnormality. The central airways are patent. There is minimal atelectasis in the posterior right lower lobe. Curvilinear opacity in the basilar left lower lobe is probably scarring. There are 2 small hypodensities in the liver that may be cysts or hemangiomas. There is a 1.5 cm right adrenal adenoma, based on attenuation. The vertebral body height and alignment are maintained in the thoracic spine. IMPRESSION: 1. There is no thoracic aortic dissection or pulmonary embolus. 2. Lungs are essentially clear. 3. Small right adrenal adenoma. Electronically signed by: Dalton Martinez MD (10/08/2020 1:52 PM) [id number] DICTATED and SIGNED BY: DALTON MARTINEZ MD DATE: 10/08/20 [id number] [facility] [address] [place] [address] IMAGING REPORT Signed PATIENT: FRANCISCO MOREL ACCOUNT: [id number] : 1975 LOCATION: ER AGE: 45 SEX: F EXAM STATUS: REG ER ORD. PHYSICIAN: RAVI KAPLAN DO REASON: chest pain PROCEDURE: CHEST AP ONLY XR CHEST 1V Clinical Indication: Reason: chest pain / Spl. Instructions: / History: Comparison: AP chest September 14, 2020. Findings: The cardiomediastinal silhouette is normal. Lungs are clear. There is no pneu mothorax. No pleural effusion is appreciated. No acute bone abnormality. IMPRESSION: No acute cardiopulmonary process. Electronically signed by: Dalton Martinez MD (10/08/2020 12:31 PM) [id number] DICTATED and SIGNED BY: DALTON MARTINEZ MD DATE: 10/08/20 [id number] 0 Course & Med Decision Making: Course & Med Decision Making Pertinent Labs and Imaging studies reviewed. (See chart for details) Patient is a 45-year-old female who presented to ER due to chest pain, EKG and cardiac enzyme came back normal, chest pain was reproducible to palpation, CTA her chest did not show dissection or PE. Patient was discharged in stable condition [place] Disclaimer: Sara Disclaimer: This electronic medical record was generated, in whole or in part, using a voice recognition dictation system. Departure Departure Impression: Primary Impression: Chest pain Additional Impression: Hypertension Disposition: 01 DC HOME SELF CARE/HOMELESS Condition: IMPROVED Referrals: CHARLES CRUZ MD (PCP) Please follow up with your doctor this week Patient Instructions: Chest Pain (Nonspecific), Hypertension Additional Instructions: Thank you for visiting our Emergency Department. We appreciate you trusting us with your care. If any additional problems come up don't hesitate to return to visit us. Please follow up with your primary care provider so they can plan additional care if needed and know about the problem that you had. If symptoms worsen come back to the Emergency Department. Any concerning symptoms that start such as chest pain, shortness of air, weakness or numbness on one side of the body, running high fevers or any other concerning symptoms return to the ER. RAVI KAPLAN DO Oct 08, 2020 12:08
[2020-10-08 12:11] LABS: ALBUMIN 3.7 g/dL (3.4-5.0); ALBUMIN/GLOBULIN RATIO 1.1 (1.0-1.7); MAGNESIUM 1.9 mg/dL (1.8-2.4); TOTAL BILIRUBIN 0.3 mg/dL (0.2-1.0); TOTAL PROTEIN 7.2 g/dL (6.4-8.2)
[2020-10-08 12:19] VITALS: BP 191/103
--- NOTE | 2020-10-08 12:33 | RAD ---
XR CHEST 1V Clinical Indication: Reason: chest pain / Spl. Instructions: / History: Comparison: AP chest September 14, 2020. Findings: The cardiomediastinal silhouette is normal. Lungs are clear. There is no pneumothorax. No pleural eff usion is appreciated. No acute bone abnormality. IMPRESSION: No acute cardiopulmonary process. Electronically signed by: Dalton Martinez MD (10/08/2020 12:31 PM) [id number]
[2020-10-08] MEDS ORDERED: CONTRAST GIVEN. MC PRN (13:15)
[2020-10-08] MEDS ORDERED: IOHEXOL 350 MG/ML 100 ML VIAL. IV ONE (13:15)
--- NOTE | 2020-10-08 13:55 | RAD ---
PQRS Compliance Statement: One or more of the following individualized dose reduction techniques were utilized for this examinat ion: 1. Automated exposure control 2. Adjustment of the mA and/or kV according to patient size 3. Use of iterative reconstruction technique CTA CHEST Clinical Indication: Reason: chest pain, hypertensive, dissection study Comparison: None. Technique: Helical CT imaging of the chest is performed before and after 90 cc Omnipaque 350 IV contr ast using CT angiogram protocol. 3-D MIP reconstructions of the aorta. Findings: No acute intramural hematoma is identified on the precontrast images. There is no thoracic aortic dis section. The aortic arch branches are patent. The great vessels are normal caliber. There is no centr al pulmonary embolus. The visualized thyroid is prominent. No nodule is seen. There is no adenopathy in the chest. The cardiac size is normal, no pericardial effusion. There is no pleural abnormality. The central airways are patent. There is minimal atelectasis in the posterior right lower lobe. Curvilinear opacity in the basilar left lower lobe is probably scarring. There are 2 small hypodensities in the liver that may be cysts or hemangiomas. There is a 1.5 cm righ t adrenal adenoma, based on attenuation. The vertebral body height and alignment are maintained in the thoracic spine. IMPRESSION: 1. There is no thoracic aortic dissection or pulmonary embolus. 2. Lungs are essentially clear. 3. Small right adrenal adenoma. Electronically signed by: Dalton Martinez MD (10/08/2020 1:52 PM) [id number]
--- NOTE | 2020-10-08 13:56 | EKG ---
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
== END 2020-10-08 15:13 | disposition home or self-care (01) ==
LOC: ER 11:20
DX: R07.2 Precordial pain (principal); I10 Essential (primary) hypertension; G43.909 Migraine, unspecified, not intractable, without status migrainosus
CPT/HCPCS: 36415; 71045; 71275; 80053; 83690; 83735; 83880; 84484; 85025; 93005; 96374; 99285; J0360; Q9967